=== PATIENT | female | born 1955 | race Caucasian/White ===

== ENCOUNTER 2024-06-30 20:20 | Observation (INO) | payer OTHER ==
[~2024-06-30] VITALS: Ht 157.5 cm; Wt 98.0 kg
[~2024-06-30 20:20] MED LIST: AZIT-12 PO
[2024-06-30 21:01] LABS: VENOUS BASE EXCESS 3.1 (-2.0-2.0); VENOUS HCO3 25.8 MMOL/L (23.0-27.0); VENOUS O2 SATURATION 94.5 % (60.0-80.0); VENOUS PARTIAL PRESSURE CO2 33.8 mmHg (38.0-50.0); VENOUS PARTIAL PRESSURE O2 70.7 mmHg (30.0-50.0); VENOUS PH 7.501 UNITS (7.330-7.430); VENOUS STANDARD HCO3 27.1 MMOL/L; VENOUS TOTAL CO2 26.9 MMOL/L (24.0-28.0)
[2024-06-30 21:08] LABS: BASO % 0.1 % (0.0-1.0); HEMATOCRIT 39.9 % (36.0-47.0); HEMOGLOBIN 13.6 g/dl (12.0-15.5); LYMPH # 0.4 10^3/uL (1.5-5.0); LYMPH % 5.7 % (24.0-44.0); MEAN CORPUSCULAR HEMOGLOBIN 29.1 pg (27.0-33.0); MEAN CORPUSCULAR HGB CONC 34.1 g/dl (32.0-36.5); MEAN CORPUSCULAR VOLUME 85.4 fl (80.0-96.0); MONO # 0.1 10^3/uL (0.0-0.8); MONO % 1.7 % (2.0-8.0); NEUTROPHILS # 6.9 10^3/uL (1.5-8.5); NEUTROPHILS % 91.6 % (36.0-66.0); PLATELET COUNT, AUTOMATED 168 10^3/uL (150-450); RED BLOOD COUNT 4.67 10^6/uL (4.00-5.40); WHITE BLOOD COUNT 7.6 10^3/uL (4.0-10.0)
[2024-06-30 21:31] LABS: CK-MB VALUE MASS < 1.0 NG/ML (<3.6)
[2024-06-30 21:32] LABS: CPK CREATINE PHOSPHOKINASE 130 U/L (34-145); MB/CK RELATIVE INDEX 0.76 (< OR =4)
[2024-06-30 21:33] LABS: ALBUMIN 3.1 G/DL (3.2-5.2); ALKALINE PHOSPHATASE 116 U/L (35-104); ALT/SGPT 55 U/L (7.0-40); AST/SGOT 41 U/L (<34); BILIRUBIN,DIRECT 0.2 MG/DL (<0.4); BILIRUBIN,TOTAL 0.6 MG/DL (0.3-1.2); BLOOD UREA NITROGEN 6 MG/DL (9-23); CALCIUM LEVEL 8.3 MG/DL (8.3-10.6); CARBON DIOXIDE LEVEL 28 MMOL/L (20-31); CHLORIDE LEVEL 103 MMOL/L (98-107); CREATININE FOR GFR 0.49 MG/DL (0.55-1.30); GLOMERULAR FILTRATION RATE > 60.0 (>45); GLUCOSE, FASTING 233 MG/DL (74-106); POTASSIUM SERUM 3.5 MMOL/L (3.5-5.1); SODIUM LEVEL 140 MMOL/L (136-145); TOTAL PROTEIN 6.7 G/DL (5.7-8.2)
[2024-06-30] MEDS: methylPREDNISolone 125MG 2ML VIAL IV ONE (21:34)
[2024-06-30] MEDS: IPRATROPIUM 0.5MG/ALBUTEROL 2.5MG INH SOL UD 3ML NEB PRN (21:42)
[2024-06-30 21:44] VITALS: O2SAT 96
[2024-06-30 22:49] LABS: CK-MB VALUE MASS < 1.0 NG/ML (<3.6); CPK CREATINE PHOSPHOKINASE 129 U/L (34-145); MB/CK RELATIVE INDEX 0.77 (< OR =4)
[2024-06-30] MEDS: OSELTAMIVIR PHOSPHATE 75 MG CAP PO ONE (23:56)
[2024-07-01] MEDS ORDERED: ACETAMINOPHEN 325 MG TAB PO PRN (00:55)
[2024-07-01] MEDS ORDERED: MOM 30ML SUSPENSION UDC PO PRN (00:55)
[2024-07-01] MEDS ORDERED: MAALOX 30 ML SUSP *UDC PO PRN (00:55)
[2024-07-01] MEDS ORDERED: VIT1TAB.12 PO (01:50)
[2024-07-01] MEDS ORDERED: HOME MED LIST COMPLETE! XX SCH (01:50)
[2024-07-01] MEDS ORDERED: PRED20TA PO (01:50)
[2024-07-01] MEDS ORDERED: ATOR40TA75 PO (01:50)
[2024-07-01] MEDS ORDERED: PARO20TA3 PO (01:50)
[2024-07-01] MEDS ORDERED: VENTAER INH (01:50)
[2024-07-01] MEDS ORDERED: [UNRECOGNIZED DRUG - CODE] PO (01:50)
[2024-07-01] MEDS: IPRATROPIUM 0.5MG/ALBUTEROL 2.5MG INH SOL UD 3ML NEB SCH (01:57)
[2024-07-01] MEDS: CEPACOL LOZENGE PO PRN (02:10)
[2024-07-01] MEDS: guaiFENesin SYRUP 200MG 10ML UDC PO PRN (02:10)
[2024-07-01] MEDS: cefTRIAXone SOD 1 GM in DEXTROSE 5% (D5W) ADV/MINI-BAG 50 ML IV SCH (02:11)
[2024-07-01 06:02] LABS: HEMATOCRIT 38.4 % (36.0-47.0); HEMOGLOBIN 12.7 g/dl (12.0-15.5); MEAN CORPUSCULAR HEMOGLOBIN 28.3 pg (27.0-33.0); MEAN CORPUSCULAR HGB CONC 33.1 g/dl (32.0-36.5); MEAN CORPUSCULAR VOLUME 85.5 fl (80.0-96.0); PLATELET COUNT, AUTOMATED 177 10^3/uL (150-450); RED BLOOD COUNT 4.49 10^6/uL (4.00-5.40); WHITE BLOOD COUNT 4.4 10^3/uL (4.0-10.0)
[2024-07-01] MEDS: methylPREDNISolone 125MG 2ML VIAL IV SCH (06:18)
[2024-07-01 06:41] LABS: ALBUMIN 2.9 G/DL (3.2-5.2); ALKALINE PHOSPHATASE 103 U/L (35-104); ALT/SGPT 50 U/L (7.0-40); AST/SGOT 35 U/L (<34); BILIRUBIN,TOTAL 0.5 MG/DL (0.3-1.2); BLOOD UREA NITROGEN 8 MG/DL (9-23); CALCIUM LEVEL 8.3 MG/DL (8.3-10.6); CARBON DIOXIDE LEVEL 27 MMOL/L (20-31); CHLORIDE LEVEL 101 MMOL/L (98-107); GLOMERULAR FILTRATION RATE > 60.0 (>45); GLUCOSE, FASTING 290 MG/DL (74-106); MAGNESIUM LEVEL 1.8 MG/DL (1.8-2.4); POTASSIUM SERUM 3.6 MMOL/L (3.5-5.1); PROCALCITONIN <0.04 ng/ml; SODIUM LEVEL 139 MMOL/L (136-145); TOTAL PROTEIN 6.4 G/DL (5.7-8.2)
[2024-07-01] MEDS ORDERED: ISOVUE-370 76% 100ML VIAL As Ordered ONE (07:33)
[2024-07-01] MEDS: ATORVASTATIN 20 MG TAB PO SCH (08:19)
[2024-07-01] MEDS: PARoxetine 20MG TABLET PO SCH (08:19)
[2024-07-01] MEDS: OSELTAMIVIR PHOSPHATE 75 MG CAP PO SCH (08:19)
[2024-07-01] MEDS: DOCUSATE SODIUM 100MG CAPSULE PO SCH (08:20)
[2024-07-01] MEDS: PANTOPRAZOLE 40MG VIAL IV SCH (08:20)
[2024-07-01 18:00] VITALS: BP 134/82; TEMP 97.7; O2SAT 92
[2024-07-01] MEDS: RIVAROXABAN 10MG TAB (XARELTO) PO SCH (18:15)
[2024-07-01 19:58] VITALS: BP 133/79; TEMP 97.7; O2SAT 90
[2024-07-02 04:33] VITALS: BP 190/100; TEMP 97.9; O2SAT 92
[2024-07-02 06:31] VITALS: BP 170/110; TEMP 97.5; O2SAT 93
[2024-07-02 07:03] VITALS: BP 170/110
[2024-07-02] MEDS: amLODIPine 5 MG TAB PO ONE (07:03)
[2024-07-02 08:09] LABS: BASO % 0.2 % (0.0-1.0); EOS % 0.1 % (0.0-3.0); HEMOGLOBIN 11.9 g/dl (12.0-15.5); LYMPH # 1.4 10^3/uL (1.5-5.0); LYMPH % 16.1 % (24.0-44.0); MEAN CORPUSCULAR HEMOGLOBIN 28.7 pg (27.0-33.0); MEAN CORPUSCULAR HGB CONC 33.1 g/dl (32.0-36.5); MEAN CORPUSCULAR VOLUME 86.7 fl (80.0-96.0); MONO # 0.8 10^3/uL (0.0-0.8); MONO % 9.4 % (2.0-8.0); NEUTROPHILS # 6.3 10^3/uL (1.5-8.5); NEUTROPHILS % 72.6 % (36.0-66.0); PLATELET COUNT, AUTOMATED 200 10^3/uL (150-450); RED BLOOD COUNT 4.15 10^6/uL (4.00-5.40); WHITE BLOOD COUNT 8.7 10^3/uL (4.0-10.0)
[2024-07-02 08:38] LABS: BLOOD UREA NITROGEN 15 MG/DL (9-23); CALCIUM LEVEL 8.4 MG/DL (8.3-10.6); CARBON DIOXIDE LEVEL 29 MMOL/L (20-31); CHLORIDE LEVEL 104 MMOL/L (98-107); CREATININE FOR GFR 0.66 MG/DL (0.55-1.30); GLOMERULAR FILTRATION RATE > 60.0 (>45); GLUCOSE, FASTING 168 MG/DL (74-106); POTASSIUM SERUM 3.6 MMOL/L (3.5-5.1); SODIUM LEVEL 143 MMOL/L (136-145)
[2024-07-02] MEDS ORDERED: LEVO75TAB PO (11:20)
[2024-07-02 12:00] VITALS: BP_SYST 132; BP_SYST 167; BP_DIAS 84; TEMP 97.2; TEMP 97.5; O2SAT 91; O2SAT 96
[2024-07-02] MEDS ORDERED: OSEL75CA PO (12:29)
[2024-07-02] MEDS ORDERED: NORV5TAB PO (12:29)
== END 2024-07-02 14:00 | disposition home or self-care (01) ==
LOC: EDBD 20:20 → M ED 20:20 → M ED INP 20:21 → M MS5PR 07-01 17:35
PROVIDERS: ADMIT Student in an Organized Health Care Education/Training Program; ATTEND Internal Medicine
DX: J96.01 Acute respiratory failure with hypoxia (principal); J09.X2 Influenza due to identified novel influenza A virus with other respiratory manifestations; D35.02 Benign neoplasm of left adrenal gland; J44.0 Chronic obstructive pulmonary disease with (acute) lower respiratory infection; E78.5 Hyperlipidemia, unspecified; F17.210 Nicotine dependence, cigarettes, uncomplicated; F39 Unspecified mood [affective] disorder; Z79.899 Other long term (current) drug therapy
CPT/HCPCS: 36415; 71045; 71275; 80048; 80053; 80076; 82550; 82553; 82803; 83605; 83735; 83880; 84145; 84484; 85025; 85027; 87040; 87076; 87154; 87486; 87581; 87633; 87798; 93005; 93041; 94640; 94760; 96365; 96366; 96375; 96376; 97161; 97530; 99285; G0378; J0696; J2470; J2919; Q9967